=== PATIENT | male | born 1960 | race Caucasian/White ===

== ENCOUNTER 2021-09-21 09:57 | Day surgery (SDC) | payer OTHER ==
[~2021-09-21] VITALS: Ht 182.9 cm; Wt 123.8 kg
[~2021-09-21 09:57] MED LIST: CETI10CH PO; HYDR-3490 PO; NS 1,000 ML IV ONE; ROSU40TA4 PO
[2021-09-21] MEDS ORDERED: LIDOCAINE 2% 100MG/5ML SDV (FOR ANES.) As Ordered ONE (11:34)
[2021-09-21] MEDS ORDERED: propofoL 200 MG/20 ML VIAL As Ordered ONE ×2 (11:34→11:48)
[2021-09-21 12:15] VITALS: BP 109/64
== END 2021-09-21 12:29 | disposition home or self-care (01) ==
LOC: M OPP 09:57
PROVIDERS: ATTEND Internal Medicine Gastroenterology
DX: Z12.11 Encounter for screening for malignant neoplasm of colon (principal); K64.0 First degree hemorrhoids; Z79.899 Other long term (current) drug therapy; Z88.8 Allergy status to other drugs, medicaments and biological substances